=== PATIENT | female | born 1990 | race Two or more races ===

== ENCOUNTER 2019-06-21 02:22 | Emergency (ER) | payer MEDICAID ==
[~2019-06-21] VITALS: Ht 152.4 cm; Wt 137.0 kg
[2019-06-21 02:40] VITALS: BP 125/83
--- NOTE | 2019-06-21 02:40 | NUR ---
ED Nurse Note: pt presents to ED c/o flu like symptoms, a 10/10 COLE that radiates from the front to the back and vaginal px. per pt, she usually feels a milder version of these symptoms when she is menstruating but this time it seems worse. the vaginal pain is a 8/10 when she coughs that feels like a "burning". the cough is non productive. when she does not cough, the px is less and feels like a cramp in her suprapubic region. pt c/o nausea without vomiting and no urinary symptoms. she had a feer of 100.3 at home that she took 650 mg of tylenol for. oral temp in triage was 99.3
[2019-06-21] MEDS ORDERED: Ketorolac 60mg Inj IM ONE (02:45)
--- NOTE | 2019-06-21 02:47 | Emergency Room Report ---
History of Present Illness General Chief Complaint: Vaginal Source: Patient Present Illness HPI Is a 28-year-old female with no past medical history patient presents with chief complaint of fever, chills, headache, cough and pelvic pain. Onset for the last 3 days. She is very congested. Her headache is diffuse in nature. Worse with movement. Pain is 8 out of 10. When she coughs she felt some pain to the left pelvic area where she had a tubal ligation. At home and better with Tylenol. Coughing is nonproductive nature. Allergies: Coded Allergies: No Known Allergies (Unverified , 06/21/19) Patient History Past Medical History: see triage record, old chart reviewed Past Surgical History: none Pertinent Family History: none Social History: Denies: smoking Last Menstrual Period: 06/18/19 Now: No : 3 Para: 3 Immunizations: other Reviewed Nursing Documentation: PMH: Agreed; PSxH: Agreed Nursing Documentation-PMH Past Medical History: No Stated History Hx Cardiac Problems: No Hx Hypertension: No Hx Pacemaker: No Hx Asthma: No Hx COPD: No Hx Diabetes: No Hx Cancer: No Hx Gastrointestinal Problems: No Hx Dialysis: No History Of Psychiatric Problem: No Hx Neurological Problems: No Hx Cerebrovascular Accident: No Hx Seizures: No Review of Systems Constitutional: Reports: chills, fever, malaise Eye: Denies: eye pain, blurred vision ENT: Reports: ear pain, nose congestion; Denies: throat swelling Respiratory: Reports: cough; Denies: shortness of breath Cardiovascular: Denies: chest pain, palpitations Gastrointestinal: Denies: abdominal pain, diarrhea, nausea, vomiting Genitourinary: Reports: pain Musculoskeletal: Denies: back pain, joint pain Skin: Denies: rash Neurological: Denies: headache, numbness Endocrine: Denies: increased thirst, increased urine Hematologic/Lymphatic: Denies: easy bruising All Other Systems: negative except mentioned in HPI Physical Exam Vital Signs Date Time Temp Pulse Resp B/P (MAP) Pulse Ox O2 Delivery O2 Flow Rate FiO2 06/21/19 02:27 99.5 103 19 125/83 (97) 96 Room Air Vitals unremarkable Sp02 EP Interpretation: reviewed, normal General Appearance: well appearing, no apparent distress, alert Head: normocephalic, atraumatic Eyes: bilateral eye PERRL, bilateral eye EOMI ENT: hearing grossly normal, normal pharynx, other - TM with effusion and mild redness. Neck: full range of motion, supple, no meningismus Respiratory: chest non-tender, lungs clear, normal breath sounds Cardiovascular #1: regular rate, rhythm, no murmur Gastrointestinal: normal bowel sounds, non tender, no mass, no organomegaly, no bruit, non-distended Musculoskeletal: back normal, normal range of motion, gait/station normal Psychiatric: mood/affect normal Medical Decision Making Diagnostic Impression: Primary Impression: Upper respiratory infection Qualified Codes: J06.9 - Acute upper respiratory infection, unspecified Additional Impressions: Left otitis media Qualified Codes: H66.92 - Otitis media, unspecified, left ear Pelvic pain ER Course Patient with an upper restaurant infection with secondary otitis media on the left. No evidence of sepsis, meningitis, pneumonia to name a few. Pelvic pain is from coughing which caused some pain in the left pelvic area. She is not . Exam benign. Last Vital Signs Date Time Temp Pulse Resp B/P (MAP) Pulse Ox O2 Delivery O2 Flow Rate FiO2 06/21/19 02:27 99.5 103 19 125/83 (97) 96 Room Air Status: improved Disposition: HOME, SELF-CARE Condition: Stable Scripts Ibuprofen* (MOTRIN*) 600 Mg Tablet 600 MG ORAL THREE TIMES A DAY, #30 TAB 0 Refills Prov: Naveen Lo MD 06/21/19 Pseudoephedrine Hcl* (SUDAFED*) 60 Mg Tablet 60 MG PO Q6H, #20 TAB Prov: Naveen Lo MD 06/21/19 Amoxicillin/Potassium Clav 875-125* (AUGMENTIN 875-125 TABLET*) 1 Each Tablet 1 TAB ORAL TWICE A DAY, #14 TAB Prov: Naveen Lo MD 06/21/19 Additional Instructions: Follow-up with your doctor in 7 days. Increase fluid. Return if worse. Naveen Lo MD Jun 21, 2019 02:47
[2019-06-21 02:57] LABS: APPEARANCE,URINE CLEAR; BILIRUBIN, URINE NEGATIVE (NEGATIVE); COLOR,URINE PALE YELLOW; GLUCOSE, URINE (UA) NEGATIVE (NEGATIVE); KETONES,URINE NEGATIVE (NEGATIVE); LEUKOCYTE ESTERASE ,URINE NEGATIVE (NEGATIVE); NITRITE,URINE NEGATIVE (NEGATIVE); PH,URINE 6 (4.5-8.0); PROTEIN,URINE 1+ (NEGATIVE); UROBILINOGEN,URINE NORMAL MG/DL (0.0-1.0)
[2019-06-21] MEDS ORDERED: PSEUDOEPHEDRINE60 MG PO (03:27)
[2019-06-21] MEDS ORDERED: AUGMENTIN 875-1 EAC1 ORAL (03:27)
[2019-06-21] MEDS ORDERED: IBUPROFEN600 MG ORAL (03:27)
[2019-06-21 03:35] VITALS: BP 112/98
--- NOTE | 2019-06-21 03:35 | NUR ---
ER DISCHARGE NOTE: Patient is cleared to be discharged per ERMD, pt is aox4, on room air, with stable vital signs. pt was given dc and prescription instructions, pt was able to verbalize understanding, pt id band removed without complications. pt is able to ambulate with steady gait. pt took all belongings.
== END 2019-06-21 03:35 | disposition home or self-care (01) ==
LOC: EMR 02:53
DX: J06.9 Acute upper respiratory infection, unspecified (principal); H66.92 Otitis media, unspecified, left ear
CPT/HCPCS: 81003; 81025; 96372; Z7502; 99283